=== PATIENT | female | born 2000 | race Caucasian/White ===

== ENCOUNTER 2022-10-27 09:38 | Emergency (ER) | payer BC, SELFPAY ==
[2022-10-27 09:53] VITALS: BP 116/78; PULSE 89; RESP 20; TEMP 36.7; O2SAT 99
--- NOTE | 2022-10-27 10:25 | ED.URI ---
HPI - URI/Sore Throat General Chief Complaint: Upper Respiratory Infection Stated Complaint: COLD SYMPTOMS Time Seen by Provider: 10/27/22 10:22 Source: patient and RN notes reviewed Mode of arrival: ambulatory Limitations: no limitations History of Present Illness HPI Narrative: 22-year-old female presents with concern 2 week history of sinus congestion drainage, pain above her eyes. Reports she started getting sore throat 2 days ago. She reports she has taken DayQuil and NyQuil. She reports fever. Denies aches, chills, sweats. MD elicited complaint: sore throat, rhinorrhea and nasal congestion Related Data Allergies Allergy/AdvReac Type Severity Reaction Status Date / Time doxycycline Allergy Unknown Verified 10/27/22 10:20 Review of Systems Review of Systems: CONSTITUTIONAL: Reports malaise, fever. EYES: Denies visual changes, redness, or discharge. ENT: Reports rhinorrhea, congestion, sinus pain,and sore throat. CARDIOVASCULAR: Denies chest pain, palpitations, or edema. RESPIRATORY: Denies cough. Denies dyspnea. GASTROINTESTINAL: Denies abdominal pain, nausea, vomiting, diarrhea SKIN: Denies rash or itching. MUSCULOSKELETAL: Denies myalgia. NEUROLOGIC: Denies headache. All systems reviewed & are unremarkable except as noted in HPI and below PMFSH Comments At time of signature, agree with nursing past medical, surgical, social and family history. There is no relevant family history pertinent to the presenting complaint Exam Narrative: GENERAL: Well-appearing, well-nourished, and in no acute distress. HEAD: Normocephalic EYES: PERRLA, conjunctivae clear ENT: Nares clear, turbinates edematous and erythematous. Mucous membranes moist. TM pearly riojas with dull light reflex bilaterally; no tragal tenderness. Oropharynx erythematous without lesions. Tonsils not enlarged and without exudate, no drooling, no hoarseness, no trismus, uvula midline. NECK: Supple. No lymphadenopathy CHEST: Clear to auscultation, breath sounds equal. No wheezing, rhonchi, rales, or stridor. No respiratory distress, speaks in full sentences. HEART: Regular rate and rhythm. No murmur heard. SKIN: Warm, dry, no rash. NEURO: Alert and oriented x3. PSYCH: Normal mood and affect Course Course Emergency Course: Patient is aware of diagnosis, understands and agrees to treatment plan. Anticipatory guidance given. Patient agrees to follow-up as directed and is aware of reasons to seek care at the emergency department. Portions of this record may have been created with voice recognition software Level of Care: Express Care Visit Vital Signs Vital signs: Vital Signs Temperature 98.1 F 10/27/22 09:53 Pulse Rate 89 10/27/22 09:53 Respiratory Rate 20 10/27/22 09:53 Blood Pressure 116/78 10/27/22 09:53 Pulse Oximetry 99 10/27/22 09:53 Temperature 98.1 F 10/27/22 09:53 Pulse Rate 89 10/27/22 09:53 Respiratory Rate 20 10/27/22 09:53 Blood Pressure 116/78 10/27/22 09:53 Pulse Oximetry 99 10/27/22 09:53 Reviewed. MDM - URI/Sore Throat MDM Narrative Medical decision making narrative: Differential diagnosis considered: Posadas virus, strep pharyngitis, allergic rhinitis, upper respiratory tract infection, sinusitis, rhinosinusitis, nasopharyngitis. viral pharyngitis, otitis media, otitis externa, pneumonia, bronchitis, viral cough syndrome, viral syndrome, and influenza. Exam findings show no acute concerns or changes; patient is non-toxic appearing and is in no distress. Patient is appropriate for outpatient treatment and follow-up. Lab Data Attestation: I reviewed the patient's lab results. Critical Care Time Critical Care Time Critical Care Time: No Discharge Plan Discharge Clinical Impression: Acute bacterial sinusitis, Pharyngitis Patient Disposition: Home, Self-Care Condition: Stable Instructions: Antibiotic Form, Sinusitis (ED) Additional Instructions: Take medications as prescribed
== END 2022-10-27 10:45 | disposition home or self-care (01) ==
PROVIDERS: Emergency Provider Nurse Practitioner
DX: J01.90 Acute sinusitis, unspecified (principal); J02.9 Acute pharyngitis, unspecified
CPT/HCPCS: 99213; G0463

== ENCOUNTER 2025-03-06 10:03 | Emergency (ER) | payer OTHER, BC, SELFPAY ==
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
[2025-03-06 10:10] VITALS: BP 125/81; PULSE 73; RESP 17; TEMP 36.7; O2SAT 98
--- OUTSIDE RECORDS SUMMARY | 2025-03-06 11:16 | XMS_ITS | Clinical Summary ---
Author Organization [address] Address [address] [place] [id number] Care Team Providers Care Forging Engineer Name Role Phone Irene Hanna DO Primary Care Provider [phone] Allergies Active Allergy Reactions Criticality Noted Date Comments Doxycycline Swelling Medium 07/06/2018 Unclassified Drug Rash Medium 05/09/2014 Mom states weeping rash and blisters . Heart monitor stickers either the glue or the latex Medications cetirizine 10 mg capsule Take by mouth Active cyclobenzaprine (FLEXERIL) 10 mg tablet Take 5 mg by mouth 3 (three) times a day as needed 9 Active etonogestreL-ethin yl estradioL (NUVARING, ELURYNG) 0.12-0.015 mg/24 hr vaginal ring 8 Active nystatin powder Apply topically 2 (two) times a day 0 Active ondansetron ODT (ZOFRAN-ODT) 4 mg disintegrating tabletIndications: Nausea Take 1 tablet (4 mg total) by mouth every 8 (eight) hours as needed for nausea or vomiting 10 tablet 2 Active Active Problems Problem Noted Date Diagnosed Date Chronic migraine without aur a without status migrainosus, not intractable 09/17/2018 Bilateral breast cysts 03/02/2016 Allergic rhinitis 06/10/2010 Social History Tobacco Use Types Packs/Day Years Used Date Smoking Tobacco: Never Smokeless Tobacco: Never Tobacco Cessation:Counseling Given: Not Answered Personal Safety Answer Date Recorded Getting School Help Needed Not on file 11/12 Comments Unknown Sex and Gender Information Value Date Recorded Sex Assigned at Not on file 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 Gender Identity Not on file Sexual Orientation Not on file Obstetrics History Last Filed Vital Signs Vital Sign Reading Time Taken Comments Blood Pressure 106/69 08/23/2022 2:12 PM CDT Pulse 72 08/23/2022 2:12 PM CDT Temperature 36.8 C (98.3 F) 08/23/2022 2:12 PM CDT Respiratory Rate 18 08/23/2022 2:12 PM CDT Oxygen Saturation 98% 08/23/2022 2:12 PM CDT Inhaled Oxygen Concentration - - Weight 73.8 kg (162 lb 12.8 oz) 08/23/2022 2:12 PM CDT Height 167.6 cm (5' 6 ) 08/23/2022 2:12 PM CDT Body Mass Index 26.28 08/23/2022 2:12 PM CDT Plan of Treatment Health Maintenance Due Date Last Done Comments Cervical Cancer Screening 1998 Depression Screening 1998 Hepatitis C Screening 1998 Regular Well Visit/Exam 18-64 2016 DTaP/Tdap/Td Vaccine (7 - Td or Tdap) 06/28/2021 06/28/2011, 03/01/2003, 11/03/1999, Additional history exists Covid-19 Vaccine ( season) 2024 09/28/2021, 01/30/2021 Influenza Vaccine (#1) 2024 , 08/22/2020, 09/29/2019, Additional history exists Hepatitis B Screening Completed 04/15/1999 , 1998, 1998 Varicella Vaccines Completed 06/10/2009, 11/03/1999 HPV Vaccines Completed 06/12/2012, 0811/2010, 06/10/2010 Pneumococcal vaccine <65 Aged Out No longer eligible based on patient's age to complete this topic Insurance [facility] ACCESS CHOICE ANTHEM ACCESS CHOICE Care Teams Forging Engineer Relationship Specialty [place] [address] [address] PCP - General Family Medicine 03/06/22
--- OUTSIDE RECORDS SUMMARY | 2025-03-06 11:16 | XMS_ITS | Clinical Summary ---
Author Organization [facility] Address [address] [place] [address] Care Team Providers Care Maintenance Chief Name Role Phone Irene Hanna Primary Care Provider [phone] Source Comments [facility],non-owned Affiliates and Associated Physician Practices is [facility] consisting of ambulatory clinics and hospital sitesin [place], [place], [place] and [place]. This disclosure is being madepursuant to the Care Everywhere program and may not contain all information available regarding this patient. Last updated 18.[facility] [employer] Allergies Active Allergy Reactions Criticality Noted Date Comments Doxycycline Swelling 07/06/2018 Medications Be aware that medications may not be up to date on this document. Always verify current medications with the patient. No known medications Family History Medical History Relation Name Comments Hyperlipidemia Mother Relation Name Status Comments Mother Social History Tobacco Use Types Packs/Day Years Used Date Smoking Tobacco: Never Smokeless Tobacco: Never Sex and Gender Information Value Date Recorded Sex Assigned at Not on file Gender Identity Not on file Sexual Orientation Not on file Last Filed Vital Signs Vital Sign Reading Time Taken Comments Blood Pressure 100/62 07/06/2018 9:31 AM CDT Pulse 73 07/06/2018 9:31 AM CDT Temperature 36.8 C (98.2 F) 07/06/2018 9:31 AM CDT Respiratory Rate 16 07/06/2018 9:31 AM CDT Oxygen Saturation 98% 07/06/2018 9:31 AM CDT Inhaled Oxygen Concentration - - Weight 61.2 kg (135 lb) 07/06/2018 9:31 AM CDT Height 167.6 cm (5' 6 ) 07/06/2018 9:31 AM CDT Body Mass Index 21.79 07/06/2018 9:31 AM CDT Plan of Treatment Health Maintenance Due Date Last Done Comments PAP SMEAR 1998 HIV SCREENING 2013 HPV VACCINE (1 - 3-dose series) 2013 HEPATITIS C SCREENING 07/06/2016 DTAP/TDAP/TD VACCINES (1 - Tdap) 2017 HEPATITIS B VACCINE (1 of 3 - 19+ 3-dose series) 2017 COVID-19 VACCINE (1 - 2023-2 5 season) 2024 DEPRESSION SCREENING 11/28/2024 INFLUENZA VACCINE (Season Ended) 2025 ZOSTER VACCINE (1 of 2) 2048 HIB VACCINE Aged Out No longer eligi ble based on patient's age to complete this topic MENINGOCOCCAL (Group B) VACC INE SHARED DECISION-MAKING Aged Out No longer eligibl e based on patient's age to complete this topic MENINGOCOCCAL GROUPS A/C/Y/W VACCINE Aged Out No longer eligible b ased on patient's age to complete this topic PNEUMOCOCCAL VACCINE Aged Out No long er eligible based on patient's age to complete this topic Care Teams Maintenance Chief Relationship Specialty [place] [address] [facility] [address] NGOZISAUNDRA CHARI ALCOCER [address] PCP - General Family Medicine 07/06/18
--- OUTSIDE RECORDS SUMMARY | 2025-03-06 11:16 | XMS_ITS | Referral Summary ---
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
[2025-03-06 12:37] VITALS: PULSE 72; RESP 18; O2SAT 99
--- OUTSIDE RECORDS SUMMARY | 2025-03-06 13:12 | XMS_ITS | Clinical Summary ---
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
--- OUTSIDE RECORDS SUMMARY | 2025-03-06 13:13 | XMS_ITS | Clinical Summary ---
Author Organization [facility] Address [address] [place] [address] Care Team Providers Care Bookmaker'S Clerk Name Role Phone Irene Hanna Primary Care Provider [phone] Source Comments [facility],non-owned Affiliates and Associated Physician Practices is [facility] organization consisting of ambulatory clinics and hospital sitesin [place], [place], [place]. This disclosure is being madepursuant to the Care Everywhere program and may not contain all information available regarding this patient. Last updated 18.[email or web address] [email or web address] Allergies Active Allergy Reactions Criticality Noted Date [...] age to complete this topic Care Teams Bookmaker'S Clerk Relationship Specialty [place] [address] [facility] [address] NGOZISAUNDRA CHARI [place] [address] PCP - General Family Medicine 07/06/18
--- OUTSIDE RECORDS SUMMARY | 2025-03-06 13:13 | XMS_ITS | Referral Summary ---
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
== END 2025-03-06 12:38 | disposition home or self-care (01) ==
PROVIDERS: Emergency Provider Registered Nurse
DX: S39.012A Strain of muscle, fascia and tendon of lower back, initial encounter (principal); S80.12XA Contusion of left lower leg, initial encounter; V43.52XA Car driver injured in collision with other type car in traffic accident, initial encounter
CPT/HCPCS: 72110; 73590; 99284